=== PATIENT | male | born 1945 | race Caucasian/White ===

== ENCOUNTER 2019-03-28 06:59 | Day surgery (SDC) | payer OTHER, BC ==
[2019-03-23 11:29] VITALS: BMI 23.8
[2019-03-28 07:32] VITALS: TEMP 97.7
[2019-03-28] MEDS ORDERED: MIDAZOLAM HCL 2 MG/2 ML SINGLE DOSE VIAL ONE (08:31)
[2019-03-28] MEDS ORDERED: PROPOFOL 20 ML ONE (08:32)
[2019-03-28] MEDS ORDERED: DEXAMETHASONE SOD PHOSPHATE 4 MG/1 ML VIAL ONE (08:54)
[2019-03-28] MEDS ORDERED: ONDANSETRON 4 MG/2 ML VIAL ONE (08:54)
[2019-03-28] MEDS ORDERED: LIDOCAINE HCL 2% (50ML VIAL) INF ONE (08:55)
[2019-03-28 09:57] VITALS: PULSE 59
[2019-03-28 10:00] VITALS: BP 120/76
--- NOTE | 2019-03-30 11:53 | OP ---
DATE OF OPERATION: 03/28/2019 PREOPERATIVE DIAGNOSIS: Left carpal tunnel syndrome. POSTOPERATIVE DIAGNOSIS: Left carpal tunnel syndrome. OPERATIVE PROCEDURE: Left carpal tunnel release. ANESTHESIA: Local with sedation. COMPLICATIONS: None. ESTIMATED BLOOD LOSS: Minimal. INDICATIONS FOR PROCEDURE: The patient is a 73-year-old male with above findings indicated for operative treatment. Risks, benefits, alternatives were discussed with the patient at length. Proper informed consent was obtained. DESCRIPTION OF PROCEDURE: After proper identification of patient and correct operative site, patient was brought to the operating room and placed supine on the operating table. All bony prominences well padded. Sedation and local anesthesia were given. Left upper extremity was prepped and draped in the usual sterile fashion. A well-padded tourniquet was placed with a sterile prep. Esmarch bandage used to exsanguinate the left upper extremity. Tourniquet was inflated to 250 mmHg. A longitudinal incision was made at the proximal aspect of the palm. Incision was taken sharply through the skin with blunt and sharp of the subcutaneous tissues. Palmar fascia was divided longitudinally and transverse carpal ligament was divided longitudinally along with the distal 4 cm of the antebrachial fascia under direct visualization with loupe magnification. This provided complete release of the median nerve at the wrist. Wound was repaired with a 5-0 fast-absorbing plain gut suture. Sterile dressings were applied. Patient was brought to the recovery room in stable condition. He tolerated procedure well. FAINA OVIEDO M.D. [id number]
== END 2019-03-28 10:06 | disposition home or self-care (01) ==
LOC: FASU 06:59
PROVIDERS: ATTEND Orthopaedic Surgery Hand Surgery
PROC: 01N50ZZ Release Median Nerve, Open Approach (ICD-10-PCS; principal; 2019-03-28 08:42)
DX: G56.02 Carpal tunnel syndrome, left upper limb (principal)